=== PATIENT | male | born 1960 | race Caucasian/White ===

== ENCOUNTER 2022-02-09 11:04 | Outpatient (CLI) | payer BC, SELFPAY ==
--- NOTE | 2022-02-09 10:45 | CRLHL7_ITS ---
For Patients: As a result of the Century Cures Act, medical imaging exams and procedure reports are released immediately into your electronic medical record. You may view this report before your referring provider. If you have questions, please contact your health care provider. BILATERAL DIAGNOSTIC MAMMOGRAM WITH COMPUTER-AIDED DETECTION AND TOMOSYNTHESIS LEFT BREAST ULTRASOUND CLINICAL HISTORY: 61-year-old male with LEFT breast lump and pain. TECHNIQUE: These mammographic images have been obtained using full-field digital technique. These mammographic images were interpreted with the benefit of computer-aided detection. Breast Tomosynthesis was used in this interpretation. LEFT breast ultrasound also performed. COMPARISON FILM: No comparison available. BREAST COMPOSITION: The breasts are almost entirely fatty FINDINGS: BILATERAL retroglandular-shaped densities seen compatible with gynecomastia. Ultrasound also performed demonstrating retroareolar breast tissue. IMPRESSION: Findings of BILATERAL gynecomastia, LEFT greater than RIGHT. No suspicious sonographic findings seen. ASSESSMENT: BI-RADS Category 2: Benign RECOMMENDATION: Further management should be based clinically. A lay language report of this examination will be provided to the patient. Manda Sy M.D. Diagnostic/Breast Radiologist [email or web address] JORGE/saman davison/Dictated by: Manda Sy MD @ 02/09/2022 12:33:00 PM (Electronically Signed)
--- NOTE | 2022-02-09 11:15 | CRLHL7_ITS ---
For Patients: As a result of the Cures Act, medical imaging exams and procedure reports are released immediately into your electronic medical record. You may view this report before your referring provider. If you have questions, please contact your health care provider. PLEASE SEE DIGITAL DIAGNOSTIC BILATERAL MAMMOGRAM PERFORMED SAME DAY CRL:saman davison/Dictated by: Manda Sy MD @ 02/09/2022 12:32:00 PM (Electronically Signed)
== END 2022-02-09 11:05 | disposition home or self-care (01) ==
PROVIDERS: PCP Physician Assistant Medical; Visit Provider Family Medicine
DX: N63.20 Unspecified lump in the left breast, unspecified quadrant
CPT/HCPCS: 76642; 77066; G0279

== ENCOUNTER 2023-07-31 08:45 | Outpatient (CLI) | payer BC, SELFPAY | END 2023-07-31 08:46 | disposition home or self-care (01) | PROVIDERS: PCP Physician Assistant Medical; Visit Provider Family Medicine | DX: Z00.00 Encounter for general adult medical examination without abnormal findings (principal); Z13.6 Encounter for screening for cardiovascular disorders; Z12.5 Encounter for screening for malignant neoplasm of prostate; Z13.0 Encounter for screening for diseases of the blood and blood-forming organs and certain disorders involving the immune mechanism; Z13.1 Encounter for screening for diabetes mellitus | CPT/HCPCS: 80048; 80061; G0103 ==

== ENCOUNTER 2024-05-28 15:11 | Outpatient (CLI) | payer BC, SELFPAY | END 2024-05-28 15:12 | disposition home or self-care (01) | LOC: LKVREF 15:13 | PROVIDERS: PCP Family Medicine; Visit Provider Family Medicine | DX: Z01.818 Encounter for other preprocedural examination (principal) | CPT/HCPCS: 80048 ==

== ENCOUNTER 2024-08-18 06:24 | Outpatient (CLI) | payer BC, SELFPAY ==
--- NOTE | 2024-08-18 07:58 | P.ANES_ITS ---
Anesthesia Charges Start Date/Time Anesthesia Start Date: 08/18/24 Anesthesia Start Time: 07:27 Stop Date/Time Anesthesia Stop Date: 08/18/24 Anesthesia Stop Time: 07:56 Coding CPT Codes CPT Codes: TAMMY LWR INTST NDMA NOS - 78005 ([id number]) P1 - NORMAL HEALTHY PATIENT, QK - DAIRY SPECIALIST 2-4 CNCRNT ANES PROC, QX - MANUFACTURING ASSOCIATE SVC W/ MED DIRECTION
--- NOTE | 2024-08-18 07:58 | W.ANESCHARGE ---
Anesthesia Charges Start Date/Time Anesthesia Start Date: 08/18/24 Anesthesia Start Time: 07:27 Stop Date/Time Anesthesia Stop Date: 08/18/24 Anesthesia Stop Time: 07:56 Coding CPT Codes CPT Codes: TAMMY LWR INTST NDMD NOS - 98122 ([id number]) P1 - NORMAL HEALTHY PATIENT, QK - DIRECTOR OF SALES SUPPORT 2-4 CNCRNT ANES PROC, QX - TASSEL MAKING MACHINE OPERATOR SVC W/ MED DIRECTION
--- NOTE | 2024-08-18 08:03 | P.ANES_ITS ---
Anesthesia Charges Start Date/Time Anesthesia Start Date: 08/18/24 Anesthesia Start Time: 07:27 Stop Date/Time Anesthesia Stop Date: 08/18/24 Anesthesia Stop Time: 07:56 Coding CPT Codes CPT Codes: TAMMY LWR INTST NDLA NOS - [id number] ([id number]) P1 - NORMAL HEALTHY PATIENT, QK - PHARMACOLOGY ASSOCIATE 2-4 CNCRNT ANES PROC, QX - BEDSPREAD FOLDER SVC W/ MED DIRECTION
--- NOTE | 2024-08-18 08:03 | W.ANESCHARGE ---
Anesthesia Charges Start Date/Time Anesthesia Start Date: 08/18/24 Anesthesia Start Time: 07:27 Stop Date/Time Anesthesia Stop Date: 08/18/24 Anesthesia Stop Time: 07:56 Coding CPT Codes CPT Codes: TAMMY LWR INTST NDFL NOS - [id number] ([id number]) P1 - NORMAL HEALTHY PATIENT, QK - SNAGGER 2-4 CNCRNT ANES PROC, QX - MILKER MACHINE SVC W/ MED DIRECTION
== END 2024-08-18 06:25 | disposition home or self-care (01) ==
LOC: OP CLINIC 06:24
PROVIDERS: PCP Family Medicine; Visit Provider Surgery
DX: Z12.11 Encounter for screening for malignant neoplasm of colon (principal); D13.39 Benign neoplasm of other parts of small intestine; D12.8 Benign neoplasm of rectum; K57.30 Diverticulosis of large intestine without perforation or abscess without bleeding; Z80.0 Family history of malignant neoplasm of digestive organs
CPT/HCPCS: 00811; 45385; 88305; J2704